=== PATIENT | male | born 1990 | race Caucasian/White ===

== ENCOUNTER 2016-03-16 17:22 | Emergency (ER) | payer OTHER, MEDICAID ==
[~2016-03-16] VITALS: Ht 180.3 cm; Wt 147.7 kg
[2016-03-16 17:27] VITALS: BP 149/87; PULSE 98; RESP 20; O2SAT 94
[2016-03-16] MEDS ORDERED: Ondansetron 8 mg ODT Tablet PO ONE (18:35)
--- NOTE | 2016-03-16 18:40 | ED.REPORT ---
HPI-Abd Pain M Under 40 Date of Service Mar 16, 2016 ED Provider: Maxwell Andrew PAC History of Present Illness: 26yo male with onset of diffuse abdominal pain at 10pm last night. No fever, n/v/d. Decreased PO intake. Pain comes and goes in spasms and is random. Improved after BM earlier today. Decreased PO intake today to try and rest gut. Hx. of cholecystectomy last year Nursing Notes Stated Complaint: STOMACH PAIN Chief Complaint: Male Abdominal Pain Nursing Notes Reviewed: Yes Allergies: Coded Allergies: No Known Allergies (Unverified , 03/16/16) Scheduled Dicyclomine (Bentyl) 10 Mg Capsule 10 MG PO TID General Time Seen by MD: 18:25 Chief Complaint Abdominal pain Hx Obtained From: Patient Arrived By: Walk-in Sudden in Onset?: Yes Onset Occurred: 17 - 20 hours ago Symptom Duration: Waxes and wanes Progression since Onset: Waxes and wanes Location: : Diffuse Radiation: : Does not radiate Severity: Current: Mild Severity: Maximum: Moderate Associated with: Denies: Chills, Constipation, Diarrhea, Fever, Nausea, Urinary frequency, Vomiting Pertinent Negative: Pt denies other symptoms Relieved by: Bowel movement Recent Healthcare: No recent doctor visit Similar Sx Previous: No Risk Factors Torsion Risk Stratification Risk factors reviewed CAD Risk Stratification Risk factors reviewed TAD Risk Stratification Risk factors reviewed Past Medical History Past Medical History Reports: Obesity Past Surgical History Reports: Cholecystectomy Smoking History Unknown if Ever Smoker Social History Take residual Percocet from cholecystectomy prn Alcohol Use: 1-3 per day Drug Use: THC, Percocet Ambulatory Status Independent Review of Systems Constitutional: Denies: Chills, Fever Respiratory: Denies: Hemoptysis, Pleuritic pain, Shortness of breath, Wheezing Cardiovascular: Denies: Chest pain GI: Reports: Abdominal pain, Denies: Constipation, Diarrhea, Nausea, Vomiting Male: Denies Dysuria Complete sys rev & neg: except as marked. Physical Exam Physical Exam Notes: markedly obese Initial Vital Signs Vital Signs (First) Date Time Temp Pulse Resp B/P Pulse Ox O2 Delivery O2 Flow Rate FiO2 03/16/16 17:27 37.4 98 20 149/87 94 Room Air Initial VS: Reviewed General/Constitutional: Awake, Alert, No acute distress, Well hydrated, Not toxic appearing Respiratory / Chest: Breath sounds NL, Breath sounds = bilat, No respiratory distress Cardiovascular: Heart rate NL, Regular rhythm, Heart sounds NL Abdomen: Soft, Non-tender, No guarding, No rebound, BS normoactive Interpretation & Diagnostics Interpretation & Diagnostics: UA concentrated Lab Results Interpretation Result Diagram: 03/16/165 03/16/16 1835 Test 03/16/16 17:45 03/16/16 18:15 03/16/16 18:35 03/16/16 19:00 Urine Color Dark yellow (YELLOW) Urine Appearance Clear (CLEAR,HAZY) Urine pH 5.5 (5.0-8.0) Urine Specific [place] 1.037 (1.003-1.035) Urine Protein Tracemg/dL (NEG,TRACE) Urine Glucose (UA) Negativemg/dL (NEGATIVE) Urine Ketones Negativemg/dL (NEGATIVE) Urine Occult Blood Negative (NEGATIVE) Urine Nitrite Negative (NEGATIVE) Urine Bilirubin Negative (NEGATIVE) Urine Urobilinogen Normalmg/dL (NORMAL) Urine Leukocyte Esterase Negative (NEGATIVE) Urine RBC 0-2/hpf (0-2) Urine WBC 0-5/hpf (0-5) Urine Epithelial Cells Moderate/hpf (NONE-MOD) Urine Crystals None seen (NONE SEEN) Urine Bacteria None/hpf (NONE-FEW) Urine Hyaline Casts None/lpf (NONE) Urine Granular Casts None seen (NONE SEEN) Urine Waxy Casts None seen (NONE SEEN) Urine Red Blood Cell Casts None seen (NONE SEEN) Urine White Blood Cell Casts None seen (NONE SEEN) Urine Mucus None seen (None Seen) Urine Trichomonas None seen (NONE SEEN) Urine Yeast None (NONE SEEN) Urinalysis Comment None Urine Culture Reflexed Not indicated Hold Urine Received (Received) White Blood Count 8.8th/mm3 (3.8-10.1) Red Blood Count 5.31mil/mm3 (4.40-5.80) Hemoglobin 15.6g/dL (13.8-17.2) Hematocrit 45.2% (41.0-50.0) Mean Corpuscular Volume 85.1fL (81-100) Mean Corpuscular Hemoglobin 29.4pg (27.0-35.0) Mean Corpuscular Hemoglobin Concent 34.5% (32.0-37.0) Red Cell Distribution Width 12.8% (12.3-15.4) Platelet Count 226bil/L (150-400) Neutrophils (%) (Auto) 74.3% (40-74) Lymphocytes (%) (Auto) 17.0% (14-46) Monocytes (%) (Auto) 7.8% (4-12) Eosinophils (%) (Auto) 0.6% (0-5) Basophils (%) (Auto) 0.2% (0-3) Sodium Level 137mEq/L (134-144) Potassium Level 4.0mEq/L (3.5-5.2) Chloride Level 99mEq/L (97-108) Carbon Dioxide Level 23mmol/L (18-29) Blood Urea Nitrogen 12mg/dL (6-20) Creatinine 0.94mg/dL (0.76-1.27) Estimat Glomerular Filtration Rate 105mL/min (>59) Glucose Level 112mg/dL (60-99) Calcium Level 9.4mg/dL (8.5-10.1) Magnesium Level 1.9mg/dL (1.6-2.6) Total Bilirubin 0.6mg/dL (0.0-1.2) Aspartate Amino Transf (AST/SGOT) 27U/L (0-50) Alanine Aminotransferase (ALT/SGPT) 41U/L (0-44) Alkaline Phosphatase 79U/L (25-150) Total Protein 7.9g/dL (6.4-8.4) Albumin 4.0g/dL (3.4-5.0) Lipase 18U/L (13-60) Hold [place] Top Tube Received (Received) Re-Eval/Medical Decision Med Decision/Clinical Course Labs normal, exam benighn. No compelling clinical indication at present for imaging. Encouraged f/u for recheck. S/s for which to return to ER discussed. Pt. acknowledged understanding of treatment plan. Differential Diagnosis: Positive: Dyspepsia, GERD, Gastritis Patient Discharge & Departure Primary Impression: Generalized abdominal pain Disposition: Home Patient Instructions: Acute Abdominal Pain (ED) Additional Instructions: Push fluids, bland diet, take meds as needed for any spasming. Follow up with [facility]. Return to ER if anything worsens. Referrals: [facility] EDSupervising Provider for APC: Hayden Felton Christopher R PAC Mar 16, 2016 18:39
[2016-03-16 19:11] LABS: BASOPHILS % (AUTO) 0.2 % (0-3); EOSINOPHILS % (AUTO) 0.6 % (0-5); MONOCYTES % (AUTO) 7.8 % (4-12); Mean Corpuscular Hemoglobin 29.4 pg (27.0-35.0); Mean Corpuscular Volume 85.1 fL (81-100); NEUTROPHILS % (AUTO) 74.3 % (40-74); Platelet Count 226 bil/L (150-400)
[2016-03-16 19:37] LABS: Magnesium 1.9 mg/dL (1.6-2.6)
[2016-03-16 19:54] LABS: APPEARANCE,URINE CLEAR (CLEAR,HAZY); COLOR,URINE DARK YELLOW (YELLOW); OCCULT BLOOD,URINE NEGATIVE (NEGATIVE); PH,URINE 5.5 (5.0-8.0); UROBILINOGEN,URINE NORMAL (NORMAL)
[2016-03-16] MEDS ORDERED: DICY10CA56 PO (20:05)
[2016-03-16 20:14] VITALS: BP 114/73; PULSE 97; RESP 18; O2SAT 95
== END 2016-03-16 20:16 | disposition home or self-care (01) ==
LOC: SED 17:22
DX: R10.84 Generalized abdominal pain (principal); E66.8 Other obesity; Z90.49 Acquired absence of other specified parts of digestive tract; Z68.42 Body mass index [BMI] 45.0-49.9, adult

== ENCOUNTER 2016-03-17 20:35 | Emergency (ER) | payer MEDICAID, OTHER ==
[~2016-03-17 20:35] MED LIST: DICY10CA56 PO
[2016-03-17 20:46] VITALS: BP 129/77; PULSE 96; RESP 20; O2SAT 95
[2016-03-17] MEDS ORDERED: 0.9% Sodium Chloride 1,000 ML IV ONE (23:00)
[2016-03-17] MEDS ORDERED: Ondansetron 2 mg/mL 2 mL Inj IVPUSH PRN (23:00)
--- NOTE | 2016-03-17 23:40 | ED.REPORT ---
HPI-Abd Pain M Under 40 Date of Service Mar 17, 2016 ED Provider: Karlie Duron MD History of Present Illness: Mr. Artemio Crews is a 26 year old gentleman with PMH significant for cholecysectomy post complication bile leak who presents to [facility] emergency department for a second night in a row for sharp 10/10 umbilical and epigastric abdominal pain. He states the pain "comes and goes and moves up toward the top." He also reports intermittant abdominal muscle spasms. He started dicyclomine yesterday with no relief of symptoms. He reports mild subjective fevers, mild nausea, decrease in bowel movements and flatus for 2 days. He denies chest pain, shortness of breath, cough. Nursing Notes Stated Complaint: STOMACH PAINS Chief Complaint: Male Abdominal Pain Nursing Notes Reviewed: Yes Allergies: Coded Allergies: No Known Allergies (Unverified , 03/16/16) Scheduled Dicyclomine (Bentyl) 10 Mg Capsule 10 MG PO TID General Time Seen by MD: 22:54 Chief Complaint Abdominal pain Past Medical History Past Medical History Reports: Obesity Past Surgical History Reports: Cholecystectomy Smoking History Unknown if Ever Smoker Social History Take residual Percocet from cholecystectomy prn Alcohol Use: 1-3 per day Drug Use: THC, Percocet Ambulatory Status Independent Review of Systems Constitutional: Reports: Fever, Denies: Chills Respiratory: Denies: Non-productive cough, Shortness of breath Cardiovascular: Denies: Chest pain GI: Reports: Abdominal pain, Constipation, Nausea, Denies: Vomiting Complete sys rev & neg: except as marked. Physical Exam Physical Exam Notes: General: Young obese gentleman in no acute distress, well-developed, well-nourished, appropriately interactive, HEENT: Normocephalic, atraumatic. External ears without defect. Pupils equal, round, and reactive to light and accommodation. Anicteric sclerae, moist conjunctivae, and no lid lag. Oropharynx free of erythema and cobble stoning with moist mucosa. Neck: Supple with full range of motion. No jugular venous distension. No bruits. No lymphadenopathy or thyromegaly. Cardiovascular: Regular rate and rhythm with no murmurs, rubs, or gallops appreciated Pulmonary: Clear to auscultation bilaterally with no crackles, wheezes, or rhonchi. Normal respiratory effort with no use of accessory muscles. Abdomen: Bowel tones not appreciable. Soft and obese, tender in the epigastrum and umbilical region, nondistended. No hepatosplenomegaly or masses appreciated. Extremities: No clubbing, cyanosis, edema, or lymphadenopathy appreciated. Skin: Normal temperature, turgor, and texture; no rash, ulcers, or subcutaneous nodules appreciated. Neurological: Cranial nerves grossly intact. Normal muscle strength, tone, and bulk. Reflexes, coordination, and sensory function within normal limits. No known gait impairment. Psychiatric: Normal mood and affect.Alert and oriented to person, place, and time. Initial Vital Signs Vital Signs (First) Date Time Temp Pulse Resp B/P Pulse Ox O2 Delivery O2 Flow Rate FiO2 03/17/16 20:46 36.8 96 20 129/77 95 03/18/16 03:48 Room Air Initial VS: Reviewed, Vital signs normal Interpretation & Diagnostics Interpretation & Diagnostics: > 24 hours of unremitting abdominal pain, subjectively severe and tender to palpation. With decreased bowel movements and flatus. ---CT Abdomen / pelvis. Lab Results Interpretation Result Diagram: 03/17/16 2335 03/17/16 2335 Test 03/17/16 23:30 03/17/16 23:35 Hold Urine Received (Received) White Blood Count 7.5th/mm3 (3.8-10.1) Red Blood Count 5.22mil/mm3 (4.40-5.80) Hemoglobin 15.4g/dL (13.8-17.2) Hematocrit 45.3% (41.0-50.0) Mean Corpuscular Volume 86.8fL (81-100) Mean Corpuscular Hemoglobin 29.5pg (27.0-35.0) Mean Corpuscular Hemoglobin Concent 34.0% (32.0-37.0) Red Cell Distribution Width 13.1% (12.3-15.4) Platelet Count 228bil/L (150-400) Neutrophils (%) (Auto) 60.6% (40-74) Lymphocytes (%) (Auto) 27.9% (14-46) Monocytes (%) (Auto) 9.4% (4-12) Eosinophils (%) (Auto) 1.7% (0-5) Basophils (%) (Auto) 0.3% (0-3) Sodium Level 141mEq/L (134-144) Potassium Level 4.2mEq/L (3.5-5.2) Chloride Level 101mEq/L (97-108) Carbon Dioxide Level 26mmol/L (18-29) Blood Urea Nitrogen 7mg/dL (6-20) Creatinine 0.92mg/dL (0.76-1.27) Estimat Glomerular Filtration Rate 107mL/min (>59) Glucose Level 105mg/dL (60-99) Calcium Level 9.0mg/dL (8.5-10.1) Magnesium Level 2.0mg/dL (1.6-2.6) Total Bilirubin 0.4mg/dL (0.0-1.2) Aspartate Amino Transf (AST/SGOT) 27U/L (0-50) Alanine Aminotransferase (ALT/SGPT) 34U/L (0-44) Alkaline Phosphatase 76U/L (25-150) Total Protein 8.0g/dL (6.4-8.4) Albumin 4.3g/dL (3.4-5.0) Lipase 20U/L (13-60) CT Abd / Pelvis Interpretation CONCLUSION: Mild diffuse colitis. Normal appendix. Status post cholecystectomy. Interpretation / Wet Read by: Interpret - Radiologist Re-Eval/Medical Decision Med Decision/Clinical Course 1. Acute epigastric and umbilical abdominal pain, present on admission. Active. - CT Abdomen / pelvis. - IV Dilaudid PRN - IV Zofran 2. Morbid obesity Acetaminophen for mild pain when necessary. Bowel regimen Senna and MiraLAX scheduled and PRN. Zofran when necessary for nausea and vomiting. Re-Evaluation/Progress : Time of Eval: 02:20 Re-Evaluation/Progress Note: Pt informed of CT results, and the need for stool samples. The Pt understands. Counseled Regarding: Diagnosis, Lab results, Need for follow-up, When/why to return to ED Patient Discharge & Departure Departure Notes 26-year-old male with a history of chronic recurrent diarrhea originally evaluated by Dr. Duron and the resident. His care was turned remote over to me at change of shift while awaiting CAT scan. CAT scan showed some areas of diffuse colitis. He does have some diarrhea with mucus and blood, so he will need a stool PCR test. He was unable to give a stool sample here, he was sent home with a stool collection kit. He will follow-up with his primary care doctor. Antibiotics are not indicated at this time pending identification of stool pathogen. Primary Impression: Colitis Disposition: Home Discharge Condition All VS Reviewed: Yes Condition: Stable Patient Instructions: Gastroenteritis (ED) Additional Instructions: Intermittent diarrhea due to colitis (by CAT scan). We will need a stool sample to determine whether there is an infectious cause. Collect a stool sample at home and take it to your doctor. Imodium as needed for diarrhea once the stool sample has been collected. Drink plenty of fluids. See your regular doctor for persistent symptoms. Referrals: NOPCP (PCP) Scribe Attestation Portions of this note were transcribed by Jadon Medina. I, Dr. Tejeda, personally performed the history, physical exam and medical decision-making; I reviewed and confirmed the accuracy of the information in the transcribed note. Signed by: Aaron Fan. 03/18/2016, *time* OTTO WOODS DO Mar 17, 2016 22:34 JADON MEDINA Mar 18, 2016 01:29 Fleix Mendez Mar 18, 2016 02:21 Td Tejeda MD Mar 18, 2016 03:26
[2016-03-17 23:43] LABS: BASOPHILS % (AUTO) 0.3 % (0-3); EOSINOPHILS % (AUTO) 1.7 % (0-5); MONOCYTES % (AUTO) 9.4 % (4-12); Mean Corpuscular Hemoglobin 29.5 pg (27.0-35.0); Mean Corpuscular Volume 86.8 fL (81-100); NEUTROPHILS % (AUTO) 60.6 % (40-74); Platelet Count 228 bil/L (150-400)
[2016-03-17] MEDS: HYDROmorphone 0.5 mg/0.5 mL iSecure Syringe IVPUSH PRN (23:48)
[2016-03-18] MEDS: HYDROmorphone 0.5 mg/0.5 mL iSecure Syringe IVPUSH PRN (01:10)
[2016-03-18 01:30] VITALS: BP 126/65; PULSE 89; RESP 20; O2SAT 95
[2016-03-18 03:48] VITALS: BP 118/69; PULSE 89; RESP 18; O2SAT 99
--- NOTE | 2016-03-18 12:05 | DRSVH ---
PROCEDURE: CT ABDOMEN AND PELVIS WITH CONTRAST ([id number]) INDICATIONS: acute abd pain, 24 hrs TECHNIQUE: After the administration of intravenous contrast, 5 mm thick sections acquired from the diaphragm to the symphysis. 5 mm coronal and sagittal reformats were acquired. For radiation dose reduction, the following was used: automated exposure control, adjustment of mA and/or kV according to patient siz e. COMPARISON: None. FINDINGS: Image quality: Excellent. ABDOMEN: Lung bases: Lung bases are clear. Heart size is normal. Solid organs: Liver and spleen are normal in size and enhancement. Gallbladder has been removed. B iliary system is non dilated. Pancreas enhances normally. No adrenal nodules. Kidneys demonstrate normal size and enhancement, without hydronephrosis. Peritoneum and bowel: Bowel loops are nonobstructed. There is mild appearance of diffuse thickening within the colon most prominently within the descending and transverse colon. Mild appearance of lisa colonic inflammation is also present. Nodes and vessels: No retroperitoneal or mesenteric adenopathy by size criteria. Sub-centimeter rig ht lower quadrant lymph nodes are present. Aorta and inferior vena cava are normal in size. Miscellaneous: No ventral hernias. PELVIS: Genitourinary: Bladder wall thickness is normal. Miscellaneous: No inguinal hernias or adenopathy. Bones: No suspicious bony lesions. No vertebral body compression fractures. IMPRESSION: 1. Mild appearance of predominantly right and transverse colonic thickening and pericolonic inflammat ory change suggestive of colitis. This could be related to infection, inflammation or less likely isc hemia. Related etiologies such as inflammatory bowel disease cannot be excluded. Dictated by: Jess Orlando M.D. on 03/18/2016 at 12:03 Approved by: Jess Orlando M.D. on 03/18/2016 at 12:03
== END 2016-03-18 03:50 | disposition home or self-care (01) ==
LOC: SED 20:35
DX: K52.9 Noninfective gastroenteritis and colitis, unspecified (principal); R10.33 Periumbilical pain; R10.13 Epigastric pain
CPT/HCPCS: 74177; 80053; 83690; 83735; 85025; 96361; 96374; 96375; 96376; 99285; J1170; J2405; J7030; Q9967

== ENCOUNTER 2016-08-27 19:49 | Emergency (ER) | payer OTHER ==
[~2016-08-27] VITALS: Ht 180.3 cm; Wt 112.7 kg
[2016-08-27 19:55] VITALS: BP 111/75; PULSE 96; RESP 16; O2SAT 99
--- NOTE | 2016-08-27 20:17 | ED.REPORT ---
HPI-Extremity Problem Upper Date of Service Aug 27, 2016 ED Provider: Seferino Pham PA-C Artemio is otherwise healthy 26-year-old male presenting with chief complaint of right hand pain. Patient states that pain began proximally 6 hours ago when he tripped and fell on outstretched hand, striking the ulnar aspect of his right hand against a concrete stair. Complains of pain and swelling at the base of the fifth metacarpal of the right hand. Patient denies striking his head, losing consciousness, neck pain, numbness/tingling. Nursing Notes Stated Complaint: RIGHT HAND INJURY Chief Complaint: Extremity Trauma Nursing Notes Reviewed: Yes Allergies: Coded Allergies: No Known Allergies (Unverified , 08/27/16) Scheduled Dicyclomine (Bentyl) 10 Mg Capsule 10 MG PO TID Scheduled PRN Acetaminophen (Acetaminophen) 500 Mg Tablet 1,000 MG PO Q6H PRN PRN For Pain Ibuprofen (Ibuprofen) 600 Mg Tablet 600 MG PO QID PRN PRN For Pain General Time Seen by MD: 20:07 Chief Complaint Hand injury right Past Medical History Past Medical History Denies Reports: Obesity Past Surgical History Reports: Cholecystectomy Smoking History Unknown if Ever Smoker Social History Take residual Percocet from cholecystectomy prn Alcohol Use: 1-3 per day Drug Use: THC, Percocet Ambulatory Status Independent Review of Systems Review of Systems Note: Negative unless stated otherwise in history of present illness Physical Exam General: Well appearing, well developed, obese, no acute distress. Right elbow: Normal inspection, nontender, full range of motion Right wrist/hand: Normal to inspection, tender at the base of the fifth metacarpal. Radial pulse 2+. Brisk capillary refill and sensation intact and distal phalanges. Full range of motion at wrist as well as MCP, PCP and DIP joints. Negative tenderness at the anatomical snuffbox. Head: Atraumatic, normocephalic. Eyes: No scleral icterus or injection. No discharge. Vision grossly intact. ENT: Voice clear, hearing grossly intact. Respiratory: No respiratory distress, no increased work of breathing. Speaks in complete sentences. Skin: Warm and dry. Neurological: Grossly nonfocal. Psychological: alert and oriented. Speech appropriate, linear and logical. Behavior appropriate. Initial Vital Signs Vital Signs (First) Date Time Temp Pulse Resp B/P Pulse Ox O2 Delivery O2 Flow Rate FiO2 08/27/16 19:55 36.4 96 16 111/75 99 Room Air Normal Interpretation & Diagnostics X-Ray Interpretation Xray Interpretation: PROCEDURE: X-RAY RIGHT HAND, MINIMUM THREE VIEWS ([id number]) INDICATIONS: injury TECHNIQUE: 3 views of the hand(s) acquired. COMPARISON: None. FINDINGS: Bones: No fractures or dislocations. Carpal bones are normally aligned. No suspicious bony lesions. Soft tissues: No suspicious soft tissue calcifications. IMPRESSION: No acute radiographic findings. If pain persists, repeat study in 5-7 days is recommended to exclude occult fracture. Re-Eval/Medical Decision Med Decision/Clinical Course Otherwise healthy 26 revealed man presents with right hand pain after a fall on outstretched hand. Reports pain at the base of the fifth metacarpal. Physical examination reveals a hand normal to inspection, tender to base of the fifth metacarpal, neurovascularly intact. Negative anatomical snuffbox tenderness. These revealed no fracture, I believe this is a contusion. Provide prescriptions for ibuprofen, acetaminophen. Advised regarding primary care follow-up, provided emergency return precautions. Patient verbalized understanding of, and consent to, the plan. Discharge & Departure Impression: Primary Impression: Contusion of right hand Encounter type: initial encounter Qualified Code: S60.221A - Contusion of right hand, initial encounter Disposition: Home Discharge Condition All VS Reviewed: Yes Condition: Stable Patient Instructions: Contusions in Adults (ED) Additional Instructions: Evaluation for right hand pain emergency department includes history, physical examination x-rays all of which are reassuring that there is not a fracture in your right hand. I believe this is a contusion, and should resolve on its own without further treatment. Rest the affected limb and elevated above the level heart as much as possible to reduce swelling. Apply ice 2-3 times over the next 24 hours. The pain is best treated with 600 mg of ibuprofen (Advil, Motrin) every 6 hours , or 1000 mg of acetaminophen (Tylenol) every 6 hours. These drugs can be taken at the same time for more severe pain. Follow-up with your primary care provider if the hand is still painful in one week. I will provide you with a referral if you need one. Return to emergency department for new or worsening symptoms including increasing pain. Referrals: [facility] EDSupervising Provider for APC: Beto Delgadillo MD copies to: [facility] Seferino Pham PA-C Aug 27, 2016 20:17
--- NOTE | 2016-08-27 20:50 | DRSVH ---
PROCEDURE: X-RAY RIGHT HAND, MINIMUM THREE VIEWS ([id number]) INDICATIONS: injury TECHNIQUE: 3 views of the hand(s) acquired. COMPARISON: None. FINDINGS: Bones: No fractures or dislocations. Carpal bones are normally aligned. No suspicious bony lesions . Soft tissues: No suspicious soft tissue calcifications. IMPRESSION: No acute radiographic findings. If pain persists, repeat study in 5-7 days is recommende d to exclude occult fracture. Dictated by: Sherry Deras M.D. on 08/27/2016 at 20:48 Approved by: Sherry Deras M.D. on 08/27/2016 at 20:48
[2016-08-27] MEDS ORDERED: ACET-171 PO (21:03)
[2016-08-27] MEDS ORDERED: IBUP-1827 PO (21:03)
== END 2016-08-27 21:06 | disposition home or self-care (01) ==
LOC: SED 19:49
DX: S60.221A Contusion of right hand, initial encounter (principal); W01.0XXA Fall on same level from slipping, tripping and stumbling without subsequent striking against object, initial encounter; Y93.89 Activity, other specified; Y92.89 Other specified places as the place of occurrence of the external cause; Y99.8 Other external cause status
CPT/HCPCS: 73130; 96372; 99284; J1885